=== PATIENT | male | born 1970 | race Caucasian/White ===

== ENCOUNTER → 2017-09-25 08:22 | Outpatient (CLI) | payer BC, SELFPAY ==
[2017-09-25 08:45] LABS: Basophils % 0.7 % (0.1-2.0); Eosinophils # 0.1 K/mm3 (0.0-0.4); Eosinophils % 2.3 % (0.1-12.0); Hematocrit 41.1 % (42.0-52.0); Hemoglobin 14.1 g/dL (14.1-18.0); Lymphocytes # 1.4 K/mm3 (0.7-4.5); Lymphocytes % 26.6 K/mm3 (10-50); Mean Corpuscular HGB Conc 34.3 g/dL (31.8-35.4); Mean Corpuscular Hemoglobin 29.1 pg (27.0-31.2); Mean Corpuscular Volume 84.9 fl (80-94); Mean Platelet Volume 7.2 fl (7.4-10.4); Monocytes # 0.4 K/mm3 (0.1-1.0); Monocytes % 7.7 % (1.7-9.3); Neutrophils # 3.3 K/mm3 (1.8-7.8); Neutrophils % 62.8 % (37.0-80.0); Platelet Count 283 K/mm3 (142-424); Red Blood Count 4.85 M/mm3 (4.60-6.20); Red Cell Distribution Width 12.8 % (11.5-17.5); White Blood Count 5.3 K/mm3 (4.8-10.8)
[2017-09-25 09:21] LABS: Alanine Aminotransferase 24 U/L (12-78); Albumin Level 3.7 gm/dL (3.4-5.0); Albumin/Globulin Ratio 1.1 (1.1-1.8); Alkaline Phosphatase 112 U/L (46-116); Anion Gap 7.3 mEq/L (5-15); Aspartate Amino Transferase 18 U/L (15-37); Bilirubin,Total 0.5 mg/dL (0.2-1.0); Blood Urea Nitrogen 9 mg/dL (7-18); Calcium 8.7 mg/dL (8.5-10.1); Carbon Dioxide 31 mmol/L (21.0-32.0); Chloride 104 mmol/L (98-107); Cholesterol 221 mg/dL (140-200); Creatinine,Serum 0.95 mg/dL (0.70-1.30); Estimated Glomerular Filt Rate 84 ml/min (>60); GFR (African American) 102 ML/MIN (>60); Globulin 3.3 gm/dl (1.3-3.2); Glucose 99 mg/dL (74-106); HDL Cholesterol 44 mg/dL (27-67); LDL Cholesterol 143 mg/dL (0-130); Potassium 4.3 mmoL/L (3.5-5.1); Sodium 138 mmol/L (136-145); Triglycerides 168 mg/dL (30-200); VLDL Cholesterol 34 mg/dL (0-40)
== END ==
PROVIDERS: PCP Internal Medicine Adolescent Medicine; Visit Provider Nurse Practitioner Family
DX: Z00.00 Encounter for general adult medical examination without abnormal findings (principal); E78.2 Mixed hyperlipidemia; I10 Essential (primary) hypertension; D69.6 Thrombocytopenia, unspecified
CPT/HCPCS: 36415; 80053; 80061; 85025

== ENCOUNTER → 2019-05-01 08:27 | Outpatient (CLI) | payer BC, SELFPAY ==
[2019-05-01 09:34] LABS: Basophils % 0.7 % (0.1-2.0); Eosinophils % 0.8 % (0.1-12.0); Hematocrit 43.1 % (42.0-52.0); Hemoglobin 14.3 g/dL (14.1-18.0); Lymphocytes % 28.4 % (10-50); Mean Corpuscular HGB Conc 33.3 g/dL (31.8-35.4); Mean Corpuscular Hemoglobin 28.4 pg (27.0-31.2); Mean Corpuscular Volume 85.1 fl (80-94); Mean Platelet Volume 7.5 fl (7.4-10.4); Monocytes # 0.2 K/mm3 (0.1-1.0); Monocytes % 5.5 % (1.7-9.3); Neutrophils # 2.2 K/mm3 (1.8-7.8); Neutrophils % 64.5 % (37.0-80.0); Platelet Count 222 K/mm3 (142-424); Red Blood Count 5.06 M/mm3 (4.60-6.20); Red Cell Distribution Width 13.2 % (11.5-17.5); White Blood Count 3.5 K/mm3 (4.8-10.8)
[2019-05-01 10:50] LABS: Alanine Aminotransferase 81 U/L (12-78); Albumin Level 3.4 gm/dL (3.4-5.0); Alkaline Phosphatase 145 U/L (46-116); Anion Gap 15.3 mEq/L (5-15); Aspartate Amino Transferase 55 U/L (15-37); Bilirubin,Total 0.5 mg/dL (0.2-1.0); Blood Urea Nitrogen 13 mg/dL (7-18); Calcium 8.3 mg/dL (8.5-10.1); Carbon Dioxide 28 mmol/L (21.0-32.0); Chloride 103 mmol/L (98-107); Chol/HDL Ratio 3.9 (1-3.5); Cholesterol 164 mg/dL (140-200); Creatinine,Serum 0.95 mg/dL (0.70-1.30); Estimated Glomerular Filt Rate 84 ml/min (>60); GFR (African American) 102 ML/MIN (>60); Globulin 3.5 gm/dl (1.3-3.2); Glucose 89 mg/dL (74-106); HDL Cholesterol 42 mg/dL (27-67); LDL Cholesterol 99 mg/dL (0-130); Potassium 4.3 mmoL/L (3.5-5.1); Sodium 142 mmol/L (136-145); Total Protein,Serum 6.9 gm/dL (6.4-8.2); Triglycerides 114 mg/dL (30-200); VLDL Cholesterol 23 mg/dL (0-40)
== END ==
PROVIDERS: Visit Provider Nurse Practitioner Family
DX: Z00.00 Encounter for general adult medical examination without abnormal findings (principal); I10 Essential (primary) hypertension; D69.6 Thrombocytopenia, unspecified
CPT/HCPCS: 36415; 80053; 80061; 85025

== ENCOUNTER → 2019-11-24 12:37 | Outpatient (CLI) | payer BC, SELFPAY ==
[2019-11-29 09:13] LABS: Covid-19 Nasal PCR Sendout Lex NOT DETECTED
== END ==
PROVIDERS: PCP Internal Medicine Adolescent Medicine; Visit Provider Internal Medicine Adolescent Medicine
DX: Z03.818 Encounter for observation for suspected exposure to other biological agents ruled out (principal)
CPT/HCPCS: U0004

== ENCOUNTER → 2020-10-26 11:02 | Outpatient (CLI) | payer BC, SELFPAY ==
[2020-10-26 11:19] LABS: Basophils % 0.5 % (0.1-2.0); Eosinophils # 0.1 K/mm3 (0.0-0.4); Eosinophils % 1.8 % (0.1-12.0); Hematocrit 43.1 % (42.0-52.0); Hemoglobin 14.6 g/dL (14.1-18.0); Lymphocytes # 1.6 K/mm3 (0.7-4.5); Lymphocytes % 24.3 % (10-50); Mean Corpuscular Hemoglobin 28.4 pg (27.0-31.2); Mean Corpuscular Volume 83.7 fl (80-94); Mean Platelet Volume 7.9 fl (7.4-10.4); Monocytes # 0.4 K/mm3 (0.1-1.0); Monocytes % 6.7 % (1.7-9.3); Neutrophils # 4.3 K/mm3 (1.8-7.8); Neutrophils % 66.7 % (37.0-80.0); Platelet Count 280 K/mm3 (142-424); Red Blood Count 5.15 M/mm3 (4.60-6.20); Red Cell Distribution Width 13.5 % (11.5-17.5); White Blood Count 6.4 K/mm3 (4.8-10.8)
[2020-10-26 13:43] LABS: Alanine Aminotransferase 23 U/L (12-78); Albumin Level 4.1 g/dl (3.5-5.0); Albumin/Globulin Ratio 1.6 (1.1-1.8); Alkaline Phosphatase 86 U/L (38-126); Anion Gap 14.8 mEq/L (5-15); Aspartate Amino Transferase 23 U/L (17-59); Bilirubin,Total 0.9 mg/dl (0.2-1.3); Blood Urea Nitrogen 13 mg/dl (9-20); Calcium 8.8 mg/dl (8.4-10.2); Carbon Dioxide 28 mmol/L (22.0-30.0); Chloride 99 mmol/L (98-107); Cholesterol 204 mg/dl (140-200); Estimated Glomerular Filt Rate 89 ml/min (>60); GFR (African American) 107 ML/MIN (>60); Globulin 2.6 g/dL (1.3-3.2); Glucose 88 mg/dl (74-100); HDL Cholesterol 51 mg/dl (40-60); Potassium 4.8 mmoL/L (3.5-5.1); Sodium 137 mmol/L (136-145); Total Protein,Serum 6.7 g/dl (6.3-8.2); Triglycerides 119 mg/dl (30-150); VLDL Cholesterol 24 mg/dL (0-40)
[2020-10-26 13:54] LABS: Direct LDL Cholesterol 117.93 mg/dL (100-129)
== END ==
PROVIDERS: Visit Provider Nurse Practitioner Family
DX: Z00.00 Encounter for general adult medical examination without abnormal findings (principal); I10 Essential (primary) hypertension; E78.2 Mixed hyperlipidemia; D69.6 Thrombocytopenia, unspecified; D72.819 Decreased white blood cell count, unspecified
CPT/HCPCS: 36415; 80053; 80061; 85025

== ENCOUNTER → 2021-05-24 10:18 | Outpatient (CLI) | payer BC, SELFPAY | PROVIDERS: PCP Internal Medicine Adolescent Medicine; Visit Provider Surgery | DX: Z01.812 Encounter for preprocedural laboratory examination (principal); Z11.52 Encounter for screening for COVID-19; Z12.11 Encounter for screening for malignant neoplasm of colon | CPT/HCPCS: C9803; U0003; U0005 ==

== ENCOUNTER 2021-05-27 10:35 | Day surgery (SDC) | payer BC, SELFPAY ==
[2021-05-22 14:41] VITALS: BMI 27.3
[2021-05-27 10:49] VITALS: BP 163/99; PULSE 98; RESP 18; TEMP 36.7; O2SAT 100
--- NOTE | 2021-05-27 10:56 | P.PN_ITS ---
[facility] Anesthesia Checklist - Patient Identification Patient Identification: Arm Band - Structural Data Admitted From: Home Planned Operative Procedure/s: Colonoscopy Consent for Planned Operative Procedure(s) Verified: Yes - NPO Status Verified Time NPO: 07:30 (Water) - Airway Assessment C-Spine Mobility Assessed: Yes TMJ Mobility Assessed: Yes Dentition: Good Dentition - Neurological Assessment Level of Consciousness: Awake Hx Seizures: No Numbness or tingling in extremities: No - Anesthesia Plan Anesthesia Risk discussed: Yes Anesthesia Plan: Verified ASA Class: II Anesthesia Type: MAC [facility] History I have reviewed the patient's past medical history: Yes Medical History: Reports:: Hypertension Denies:: Cancer, Diabetes Mellitus Type 1, Diabetes Mellitus Type 2, Internal Pacemaker, MRSA *Have you ever received a pneumonia vaccine?: No *Have you received a flu vaccine this season?: No Anesthesia experience/problems:: None Other Surgeries: No: Pacemaker Amputation: No Fractures: No - *Social History Last grade of school completed: Some college Smoking Status: Light tobacco smoker Tobacco Type: smokeless tobacco # Packs/Day (cigarettes): 1 Alcohol Intake: never Substance Use Type: denies use *Occupational Status:: employed Housing: house Household Members: spouse *Travel in the last 8 weeks: None Family Hx:: Coronary Artery Disease, Heart Attack
[2021-05-27 11:04] VITALS: O2SAT 97
--- NOTE | 2021-05-27 11:30 | HMH.SCOPE ---
- Procedure: Date: 05/27/21 Patient Date of :: 1970 Procedure Performed:: Colonoscopy Indications:: Screening Performing Provider:: Jaswant Ludwig MD Referring Provider:: . Sedation:: Monitored anesthesia care Procedure:: After informed consent was obtained the patient was taken to the endoscopy suite. Sedation ensued after the patient was transferred to the left lateral decubitus position. Pulse, blood pressure, and oxygen saturation were monitored throughout the procedure. Digital rectal exam revealed no significant abnormality. The colonoscope was placed in position. The entire colon was evaluated. The colonoscope was carefully removed and the patient was transferred to recovery in stable condition. Please see findings and specimens below for detail. Findings:: Bowel preparation moderate Moderate spasticity/tortuosity Hemorrhoidal cushions Specimens:: None Recommendations:: Repeat colonoscopy in 3-5 years secondary to moderate bowel preparation, spasticity, and tortuosity. If repeat colonoscopy reveals no abnormality timing of future colonoscopies will likely be extended. Complications:: No immediate Estimated blood obtained (mL): 0
[2021-05-27 11:31] VITALS: BP 97/55; PULSE 89; RESP 12; TEMP 36.3; O2SAT 94
[2021-05-27 11:41] VITALS: BP 98/52; PULSE 84; RESP 16; O2SAT 96
[2021-05-27 11:51] VITALS: BP 100/57; PULSE 77; RESP 16; O2SAT 99
[2021-05-27 12:01] VITALS: BP 94/53; PULSE 74; RESP 16; TEMP 36.3; O2SAT 98
== END 2021-05-27 12:11 | disposition home or self-care (01) ==
LOC: OUTP 10:36
PROVIDERS: PCP Internal Medicine Adolescent Medicine; Visit Provider Surgery
PROC: 0DJD8ZZ Inspection of Lower Intestinal Tract, Via Natural or Artificial Opening Endoscopic (ICD-10-PCS; CPT 45378; principal; 2021-05-27 11:30)
DX: Z12.11 Encounter for screening for malignant neoplasm of colon (principal); K56.2 Volvulus; K64.9 Unspecified hemorrhoids; I10 Essential (primary) hypertension; Z72.0 Tobacco use; Z82.49 Family history of ischemic heart disease and other diseases of the circulatory system; Z82.3 Family history of stroke; Z88.1 Allergy status to other antibiotic agents; Z79.899 Other long term (current) drug therapy
CPT/HCPCS: 45378

== ENCOUNTER 2021-06-03 15:30 | Outpatient (RCR) | payer BC, SELFPAY ==
--- NOTE | 2021-04-28 15:18 | HMH.OTOPEV ---
OT Inpatient Evaluation Rehab OT Outpatient Eval Start: 04/28/21 14:48 Freq: Status: Active Protocol: Document 04/28/21 14:49 PAULINO (Rec: 04/28/21 15:18 PAULINO [id number]) Electronically Signed By Keyla Romero OT 04/28/21 14:49 Outpatient Therapy Subjective History Subjective History 50 year old male referred to skilled OP OT skilled services for R shoulder pain. Patient stated having pain in the right shoulder for the past year with it progressively getting worse. Patient in the past has taken anti- inflammatory medication in order to decrease pain level. Patient stated the pain got better but soon returned. Patient is currently taking anti-inflammatory for the past week with minimal improvement in pain. Chief Complaint Pain,Weakness Symptom Type Ache,Dull Symptoms Relieved By Prescription Meds Symptoms Aggravated By Physical Activity Prior Functional Limitations None Current Functional Limitations Reaching,Lifting,Recreation Activity Symptom Description Intermittent Level of pain today (0-10) 0 Pain scale - at its best (0-10) 0 Pain scale - at its worst (0-10) 5 Shoulder/Elbow Eval Shoulder Objective Measurements Shoulder ROM Right Shoulder Abduction Active Range of 155 Motion (degrees) Shoulder Flexion Active Range of Motion 160 (degrees) Query Text: Shoulder External Rotation Active Range 70 of Motion (degrees) Shoulder Internal Rotation Active Range 60 of Motion (degrees) pain with active ROM shoulder exam right standard Shoulder MMT Shoulder Abduction Strength Grade 3- Fair- Shoulder Extension Strength Grade 3- Fair- Shoulder Flexion Strength Grade 3- Fair- Shoulder Horizontal Abduction Strength 3- Fair- Grade Shoulder Horizontal Adduction Strength 3- Fair- Grade Infraspinatus/Teres Minor Strength Grade 3- Fair- Shoulder External Rotation Strength 3- Fair- Grade Shoulder Internal Rotation Strength 3- Fair- Grade Shoulder Special Tests impingement sign present shoulder exam right standard Shoulder Empty Can (Supraspinatus) Test Negative Right Shoulder Keys-Sai Impingeme
== END 2021-07-08 09:22 | disposition home or self-care (01) ==
LOC: OT 15:30
PROVIDERS: PCP Internal Medicine Adolescent Medicine; Visit Provider Internal Medicine Adolescent Medicine
DX: M25.511 Pain in right shoulder (principal)
CPT/HCPCS: 97010; 97014; 97110; 97140; 97165; G0283

== ENCOUNTER → 2021-07-12 10:59 | Outpatient (CLI) | payer BC, SELFPAY ==
--- NOTE | 2021-07-12 11:18 | XR_ITS ---
PROCEDURE INFORMATION: Exam: XR Right Shoulder Exam date and time: 07/12/2021 11:12 AM Age: 50 years old Clinical indication: Pain; Shoulder; Right TECHNIQUE: Imaging protocol: XR Right shoulder. Views: 2 or more views. COMPARISON: No relevant prior studies available. FINDINGS: Bones/joints: Osseous structures of the shoulder are grossly normal. Acromioclavicular joint is without dislocation or fracture. Subacromial space height is normal. Adjacent ribs are normal. Glenohumeral joint, clavicle, acromion, and coracoid process appear grossly normal. Soft tissues: Normal. IMPRESSION: Normal shoulder.
== END ==
PROVIDERS: Visit Provider Internal Medicine Adolescent Medicine
DX: M25.511 Pain in right shoulder (principal)
CPT/HCPCS: 73030

== ENCOUNTER → 2021-08-02 10:35 | Outpatient (CLI) | payer BC, SELFPAY ==
--- NOTE | 2021-08-02 10:41 | MR_ITS ---
FINAL REPORT CLINICAL HISTORY: ROTATOR CUFF SYNDROME OF RT SHOULDER. nki. pt states chronic pain. lrom. unable to lift things. pain numbness and tingling radiates down arm. FINDINGS: Multiplanar MR imaging of the right shoulder was performed without contrast. There is a focal full-thickness tear at the anterior footprint of the supraspinatus tendon measuring 9 mm in AP dimensions. There is mild AC joint degenerative change. There is spurring along the undersurface of the acromion. A small amount of fluid is seen in the joint and the subacromial/subdeltoid bursa. There is a possible focal tear at the base of the posterior labrum on series 3, images 14 and 15. There are small partial tears of the long head of the biceps tendon. There are subchondral cysts in the posterior humeral head. No significant glenohumeral joint effusion is seen. There is no evidence of fracture or dislocation. The musculature is intact. There is no evidence of soft tissue mass. IMPRESSION: Focal full-thickness supraspinatus tendon tear. Possible focal tear at the base of the superior labrum. Mild AC joint arthrosis. Small partial tears of the long head of the biceps tendon. Subchondral cysts in the posterior humeral head. Reviewed, Interpreted and Dictated by Amari Sanford III, MD Transcribed by Bola Kaufman Authenticated by Amari Sanford III, MD on 08/04/2021 07:50:37 AM [facility]
== END ==
PROVIDERS: PCP Internal Medicine Adolescent Medicine; Visit Provider Internal Medicine Adolescent Medicine
DX: M75.101 Unspecified rotator cuff tear or rupture of right shoulder, not specified as traumatic (principal)
CPT/HCPCS: 73221

== ENCOUNTER 2023-11-07 13:48 | Emergency (ER) | payer BC, SELFPAY ==
[2023-11-07 14:20] VITALS: BP 151/69; PULSE 84; RESP 20; TEMP 37.1; O2SAT 100; BMI 27.4
--- NOTE | 2023-11-07 14:36 | EXP.UTC ---
Discharge Plan Disposition Patient Disposition: Home, Self-Care Condition: Good Prescriptions Prescriptions: New amoxicillin 500 mg capsule 500 mg PO BID 10 Days Qty: 20 0RF No Action metoprolol succinate 25 MG tablet extended release 24 hr 25 mg PO DAILY loratadine 5 MG tablet,disintegrating 5 mg PO NEEDED PRN (Reason: allergies) Referrals Follow up/Referrals: Geremias Monzon MD [Primary Care Provider] - See instructions Activity Restrictions/Add. Instructions Additional Instructions/Restrictions: *Monitor Temp, Over the counter Motrin or Tylenol as directed/as needed Tylenol every 4 hours and Motrin every 6 hours (as long as your family doctor has told you that you can take it) for fever or pain. and straight to ER if unable to lower temp less than 101.0 after medication given *Warm salt water gargles may help to soothe the throat *Throat Lozenges? *Warm fluids like tea with honey may help to soothe the throat? *Sleep elevated *Humidifier/Vaporizer Your throat swab was sent for culture. Those results are typically sent to your primary care. Be sure to follow up in 2-3 days with your family doctor/primary care physician if no improvement so they can review those result and treat if necessary. If you don?t have a primary care doctor, I recommend you get one but in the mean time, you will have to return to a walk in clinic Follow up IMMEDIATELY for new or worsening symptoms or no Noticeable improvement over the next 48-72 hours. 911 for difficulty breathing or swallowing Clinical Impressions Clinical Impression: Pharyngitis Instructions Patient Instructions: Sore Throat, Amoxicillin Print Language Print Language: Uzbek Discharge ED Provider: Rachel Black [facility] [place] HPI General Stated complaint: covid pos 11/03, sore throat Mode of Arrival: Ambulatory Source of Information: Patient Limitations: No Limitations Time Seen by Provider: 11/07/23 14:36 Description of Symptoms (Recalled from Triage Doc. by RN): PATIENT C/O SORE THROAT. HE STATES HE WAS DIAGNOSED WITH COVID ON WEDNESDAY, AND MOST OF HIS SYMPTOMS ARE BETTER BUT STATES HIS SORE THROAT HAS GOTTEN A LOT WORSE HEENT Symptoms (Recalled from RN notes): Yes Resp Symptoms (Recalled from RN notes): No Skin Symptoms (Recalled from RN notes): No MS Symptoms (Recalled from RN notes): No Functional Status (Recalled from RN notes): WNL History of Present Illness Provider Complaint: Patient states that he was dx with COVID on but the symptoms he was initially having with COVID has got better but his throat is hurting alot worse and hurts when he swallows States feels like he may have strep throat also so he came in Related Data Home Medications ?Medication ?Instructions ?Recorded ?Confirmed loratadine 5 mg disintegrating 5 mg PO NEEDED PRN allergies 05/22/19 11/07/23 tablet metoprolol succinate 25 mg 25 mg PO DAILY bp 05/22/19 11/07/23 tablet,extended release 24 hr Previous Rx's ?Medication ?Instructions ?Recorded amoxicillin 500 mg capsule 500 mg PO BID 10 days #20 caps 11/07/23 Allergies Allergy/AdvReac Type Severity Reaction Status Date / Time erythromycin base Allergy Unknown Verified 05/27/21 10:48 [ERYTHROMYCIN BASE] Worker's Comp Is this a Worker's Comp case?: No PFSH COUNTS INCLUDE 234 BEDS AT THE [facility] Disclaimer: The information contained in this section may have been updated after the patient was seen, as this information can be updated by other users. Medical History (Updated 11/07/23 @ 15:07 by Rachel Black APRN) Hypertension Social History Smoking Status: Current every day smoker tobacco type: smokeless tobacco alcohol intake: never substance use type: denies use current occupational status: employed Travel in the last 8 weeks: None household members: spouse and children housing: house current occupation: [place] [employer] caffeine: No ROS Obtained: Yes All systems reviewed & no additional complaints except as documented and Yes Systems reviewed as appropriate & no additional complaints except as documented Constitutional Constitutional: Reports system reviewed and no additional complaints, except as documented and Reports as per HPI ENT Ears, Nose, Mouth, and Throat: Reports system reviewed and no additional complaints, except as documented, Reports as per HPI and Reports sore throat Cardiovascular Cardiovascular: Reports system reviewed and no additional complaints, except as documented and Reports as per HPI Respiratory Respiratory: Reports system reviewed and no additional complaints, except as documented and Reports as per HPI Gastrointestinal Gastrointestingal: Reports system reviewed and no additional complaints, except as documented and as per HPI Physical Exam General General appearance: alert and in no apparent distress ENT ENT exam: Present mucous membranes moist Expanded ENT Exam Throat exam: Present tonsillar erythema (with patchy like area noted) Respiratory Respiratory exam: Present normal lung sounds bilaterally; Absent respiratory distress or wheezes Cardiovascular Cardiovascular exam: Present regular rate, normal rhythm and normal heart sounds Abdominal Exam Abdominal exam: Present soft and normal bowel sounds; Absent distention or tenderness Neurological Exam Neurological exam: Present alert, oriented X3 and normal gait Medical Decision Making Bhupinder Inquiry Pt receiving controlled substance: No Bhupinder was queried for this patient: No Vital Signs: 11/07/23 14:20 Temperature 98.8 F Temperature Source Oral Pulse Rate [Left Brachial] 84 Respiratory Rate 20 Blood Pressure [Left Arm] 151/69 H Blood Pressure Mean [Left Arm] 96 Blood Pressure Source [Left Arm] Automatic Cuff Blood Pressure Position [Left Arm] Sitting 02 Sat by Pulse Oximetry 100 Oxygen Delivery Method Room Air Lab Data Lab results reviewed: Yes I reviewed the patient's lab results.
[2023-11-07 15:00] LABS: UTC Strep Screen (Rapid) Negative (Negative)
[2023-11-07 15:09] VITALS: BP 151/69; PULSE 84; RESP 20; TEMP 37.1; O2SAT 100
== END 2023-11-07 15:14 | disposition home or self-care (01) ==
PROVIDERS: Emergency Provider Nurse Practitioner; PCP Internal Medicine Adolescent Medicine
DX: J02.9 Acute pharyngitis, unspecified (principal); Z86.16 Personal history of COVID-19
CPT/HCPCS: 87880; 99204; 99212; G0463